=== PATIENT | female | born 1975 | race Caucasian/White ===

== ENCOUNTER 2018-06-04 11:32 | Emergency (ER) | payer BC ==
[2018-06-04 11:42] VITALS: BP 119/75; PULSE 103; RESP 16; TEMP 98.3
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
== END 2018-06-04 13:40 | disposition home or self-care (01) ==
LOC: EC 11:32
DX: Z04.1 Encounter for examination and observation following transport accident (principal); F17.200 Nicotine dependence, unspecified, uncomplicated
CPT/HCPCS: 99282

== ENCOUNTER 2018-09-01 08:06 | Emergency (ER) | payer MEDICAID ==
[2018-09-01 08:27] VITALS: RESP 18
--- NOTE | 2018-09-01 09:41 | ED ---
General Adult HPI - General Chief complaint: Skin/Abscess/Foreign Body Stated complaint: Urogenital, Cyst Source: patient Mode of arrival: ambulatory Limitations: no limitations - History of Present Illness Initial comments: 43-year-old female patient with a past medical history of attention deficit disorder and self diagnosed Bartholin's cyst. Patient states that the last year she has had a self diagnosed Bartholin's cyst on 2 occasions. On both these occasions the patient treated herself with sits baths, and the self- described cysts ruptured and resolved on its own. The patient's current complaint began approximately 2 days ago, when patient began to feel pain around her vulvar region. The patient states that she observe development of another cyst. She presented to the ED due to pain. Patient states that she subjectively felt feverish last night, and tach [id number] Motrin. Patient also took [id number] Motrin this morning. Patient states that she is not sexually active. Patient's last visit with a engineering technical analyst was approximately 3 years ago, when she had her last women's health examination. Patient states that she is due for another examination this year. Patient denies other complaints. Systemic: Pt denies fatigue, myalgia, rash. Pt denies weakness, night sweats, weight loss. Neuro: Pt denies headache, visual disturbances, syncope or pre-syncope. HEENT: Pt denies ocular discharge or irritation, otalgia, rhinorrhea, pharyngitis or notable lymphadenopathy. Cardiopulmonary: Pt denies chest pain, SOB, heart palpitations, dyspnea on exertion. Abdominal/GI: Pt denies abdominal pain, n/v/d. : Pt denies burning w/ urination, frequency/urgency. Denies new onset urinary or bowel incontinence. MSK: Pt denies myalgia, loss of strength or function in extremities. - Related Data Home Medications Medication Instructions Recorded Confirmed Aspirin/Acetaminophen/Caffeine 1 tab PO DAILY PRN 09/01/18 09/01/18 [Excedrin Migraine Caplet] Dextroamphetamine/Amphetamine 30 mg PO BID 09/01/18 09/01/18 [Adderall] Ibuprofen [Motrin Ib] 600 mg PO Q6H PRN 09/01/18 09/01/18 Previous Rx's Medication Instructions Recorded Hydrocodone/Acetaminophen [York 1 each PO Q6HR PRN #12 tab 09/01/18 5-325] Sulfamethox-Tmp 800-160Mg [Bactrim 2 tab PO Q12HR #40 tab 09/01/18 DS 800-160 mg] Allergies Allergy/AdvReac Type Severity Reaction Status Date / Time No Known Allergies Allergy Verified 09/01/18 10:28 Review of Systems ROS Statement: Those systems with pertinent positive or pertinent negative responses have been documented in the HPI. ROS Other: All systems not noted in ROS Statement are negative. Past Medical History Additional Past Medical History / Comment(s): migraines barthilon cysts History of Any Multi-Drug Resistant Organisms: None Reported Additional Past Surgical History / Comment(s): wide excision of Brown recluse bite on R upper thigh Past Psychological History: No Psychological Hx Reported Smoking Status: Current every day smoker Past Alcohol Use History: None Reported Past Drug Use History: None Reported General Exam - General Exam Comments Initial Comments: Constitutional: NAD, AOX3, Pt has pleasant affect. HEENT: NC/AT, trachea midline, neck supple, no lymphadenopathy. Posterior pharynx non erythematous, without exudates. External ears appear normal, without discharge. Mucous membranes moist. Eyes PERRLA, EOM intact. There is no scleral icterus. No pallor noted. Cardiopulmonary: RRR, no murmurs, rubs or gallops, no JVD noted. Lungs CTAB in anterior and posterior marmolejo. No peripheral edema. Abdominal exam: Abdomen soft and non-distended. Abdomen non-tender to palpation in all 4 quadrants. Bowel sounds active in LLQ. No hepatosplenomegaly. Neuro: CN II-XII grossly intact. Policy Services Representative: External gynecological exam conducted, chaperoned by Deborah SINGER. A tender area of erythema noted on R labia appproximately 2x.5 cm, non fluctuant. No other abnormalities noted. Limitations: no limitations Course Vital Signs 09/01/18 08:23 Temperature 99.0 F Pulse Rate 109 H Respiratory 18 Rate Blood Pressure 104/65 O2 Sat by Pulse 96 Oximetry Medical Decision Making - Medical Decision Making 43-year-old female patient presented to ED with acute vaginal pain. Vital signs stable, HR 92 when examined. Patient has history of suspected Bartholin cyst. Physical exam revealed a mild labial abscess, nonfluctuant located at approximately 7 oclock. Further investigations revealed a leukocytosis of 13.1 and a urinary tract infection. Lab will call pt if culture from urine grows a bacteria not covered by abx or if gonorrhea/chlamydia is positive. Patient's pain is well controlled with Toradol and 1 dose po norco. Pt will call mother to oil transport driver her home. Patient to be discharged with by mouth antibiotic and analgesia. Patient to follow up with primary care physician as well as engineering technical analyst in 1-2 days. Patient to return to ED if signs of systemic infection (including fever/chills, nausea vomiting diarrhea, diaphoresis, or any other new complaints. Disposition Clinical Impression: UTI (urinary tract infection), Labial abscess Disposition: HOME SELF-CARE Condition: Good Instructions: Abscess (ED), Urinary Tract Infection in Women (ED) Additional Instructions: Patient to adhere to previously discussed treatment plan and will take medication(s) as directed. Patient to follow up with PCP in 1-2 days. Patient to return to ED if symptoms do not improve. Prescriptions: Hydrocodone/Acetaminophen [York 5-325] 1 each PO Q6HR PRN #12 tab PRN Reason: Pain Sulfamethox-Tmp 800-160Mg [Bactrim DS 800-160 mg] 2 tab PO Q12HR #40 tab Is patient prescribed a controlled substance at d/c from ED?: Yes When asked, does pt state using other controlled substances?: No If prescribed controlled substance>3 days was MAPS reviewed?: Prescribed <3 Days If opioid is for acute pain is fill amount 7 days or less?: Yes If Rx opioid, was Start Talking consent form obtained?: Yes Referrals: Geo Hoyos MD [Primary Care Provider] - 1-2 days Nirmala Patino DO [Doctor of Osteopathic Medicine] - 1-2 days Time of Disposition: 10:55
[2018-09-01] MEDS ORDERED: KETOROLAC 60 MG/2 ML VIAL IM STA (09:45)
[2018-09-01 10:08] LABS: Basophils # (A) 0.1 k/uL (0-0.2); Basophils % (A) 1 %; Eosinophils # (A) 0.3 k/uL (0-0.7); Eosinophils % (A) 2 %; HGB 15.1 gm/dL (11.4-16.0); Lymphocytes # (A) 1.1 k/uL (1.0-4.8); Lymphocytes % (A) 8 %; MCHC 34.4 g/dL (31.0-37.0); MCV 81.5 fL (80.0-100.0); Mean Platelet Volume 6.9; Monocytes # (A) 0.5 k/uL (0-1.0); Monocytes % (A) 4 %; Neutrophils % (A) 84 %; Platelet Count 168 k/uL (150-450); RDW 14.4 % (11.5-15.5); WBC 13.1 k/uL (3.8-10.6)
[2018-09-01 10:19] LABS: Amorphous Sediment,Urine Occasional /hpf; Appearance,Urine Cloudy (Clear); Bacteria,Urine Rare /hpf; Bilirubin,Urine Negative (Negative); Blood,Urine Moderate (Negative); Color,Urine Yellow; Glucose,Urine (UA) Negative (Negative); Ketones,Urine Negative (Negative); Leukocyte Esterase,Urine Large (Negative); Mucus,Urine Occasional /hpf; Nitrite,Urine Negative (Negative); Protein,Urine Trace (Negative); RBC,Urine 13 /hpf (0-5); Specific Gravity,Urine 1.019 (1.001-1.035); Squamous Epithelial Cell,Urine 4 /hpf (0-4); Urobilinogen,Urine <2.0 mg/dL (<2.0)
[2018-09-01] MEDS ORDERED: HYDROcodone/APAP 5-325MG 1 EACH TAB PO STA (10:45)
[2018-09-01 11:05] VITALS: BP 110/70; PULSE 90; TEMP 98.7
[2018-09-02 13:54] LABS: C. trachomatis,PCR Negative (Neg,Equiv); Chlamydia trachomatis Source Vagina; N. gonorrhoeae,PCR Negative (Neg,Equiv); Neisseria Source Vagina
== END 2018-09-01 11:04 | disposition home or self-care (01) ==
LOC: EC 08:06
DX: N76.4 Abscess of vulva (principal); N39.0 Urinary tract infection, site not specified; F17.200 Nicotine dependence, unspecified, uncomplicated; Z98.890 Other specified postprocedural states; Z79.899 Other long term (current) drug therapy
CPT/HCPCS: 36415; 85025; 81001; 81025; 87491; 87591; 87086; 99283; 96372; J1885

== ENCOUNTER 2018-09-03 12:21 | Inpatient (IN) | payer MEDICAID ==
[2018-09-03] MEDS ORDERED: PIPERACILLIN-TAZOBACTAM 3.375 GM in SODIUM CHLORIDE 0.9% 100 ML IVPB STA (13:31)
[2018-09-03] MEDS ORDERED: ACETAMINOPHEN TAB 500 MG TAB PO STA (13:31)
[2018-09-03] MEDS ORDERED: VANCOMYCIN IV PER PHARMACY 1 EACH MISC MISCELLANE PRN (13:31)
[2018-09-03] MEDS ORDERED: MORPHINE SULFATE 4 MG/ML SYRINGE IVP STA (13:39)
--- NOTE | 2018-09-03 13:40 | ED ---
Skin/Abscess/FB HPI <Luis Louis - Last Filed: 09/03/18 17:05> - General Source: patient, RN notes reviewed, old records reviewed Mode of arrival: ambulatory Limitations: no limitations <Kelly Garcia - Last Filed: 09/03/18 17:18> - General Chief complaint: Skin/Abscess/Foreign Body Stated complaint: Abscess Time Seen by Provider: 09/03/18 12:40 - History of Present Illness Initial comments: Patient is a 43-year-old female who presents emergency department today she complained of increasing redness and swelling over her right labia majora extending into the mons pubis. Patient reports she's had high fevers of 102. She was discharged 2 days ago on Bactrim DS. She states at that time the area was not very fluctuant. At this time the area has a significant abscess in she reports some foul odor spontaneous drainage from the area. 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 She reports that she does occasionally get abscesses but typically will drink a month her own. Patient states that she does not have an INFORMATICS MANAGER at this time. (Kelly Garcia) - Related Data Home Medications Medication Instructions Recorded Confirmed Aspirin/Acetaminophen/Caffeine 1 tab PO DAILY PRN 09/01/18 09/03/18 [Excedrin Migraine Caplet] Dextroamphetamine/Amphetamine 30 mg PO BID 09/01/18 09/03/18 [Adderall] Ibuprofen [Motrin Ib] 600 mg PO Q6H PRN 09/01/18 09/03/18 Previous Rx's Medication Instructions Recorded Hydrocodone/Acetaminophen [[place] 1 each PO Q6HR PRN #12 tab 09/01/18 5-325] Sulfamethox-Tmp 800-160Mg [Bactrim 2 tab PO Q12HR #40 tab 09/01/18 DS 800-160 mg] Allergies Allergy/AdvReac Type Severity Reaction Status Date / Time No Known Allergies Allergy Verified 09/03/18 16:55 Review of Systems ROS Other: All systems not noted in ROS Statement are negative. <Luis Louis - Last Filed: 09/03/18 17:05> ROS Other: All systems not noted in ROS Statement are negative. <Kelly Garcia - Last Filed: 09/03/18 17:18> ROS Statement: Those systems with pertinent positive or pertinent negative responses have been documented in the HPI. Past Medical History Additional Past Medical History / Comment(s): migraines barthilon cysts History of Any Multi-Drug Resistant Organisms: None Reported Additional Past Surgical History / Comment(s): wide excision of Brown recluse bite on R upper thigh Past Psychological History: No Psychological Hx Reported Smoking Status: Current every day smoker Past Alcohol Use History: None Reported Past Drug Use History: Marijuana <Kelly Garcia - Last Filed: 09/03/18 17:18> General Exam <Luis Louis - Last Filed: 09/03/18 17:05> Limitations: no limitations General appearance: alert, in no apparent distress Head exam: Present: atraumatic, normocephalic, normal inspection Eye exam: Present: normal appearance, PERRL, EOMI. Absent: scleral icterus, conjunctival injection, periorbital swelling ENT exam: Present: normal exam, mucous membranes moist Neck exam: Present: normal inspection. Absent: tenderness, meningismus, lymphadenopathy Respiratory exam: Present: normal lung sounds bilaterally Cardiovascular Exam: Present: regular rate, normal rhythm, normal heart sounds. Absent: systolic murmur, diastolic murmur, rubs, gallop, clicks GI/Abdominal exam: Present: soft, normal bowel sounds. Absent: distended, tenderness, guarding, rebound, rigid External exam: Present: erythema (Patient has extensive erythema from the right labia minora to the mons pubis into the abdomen. Area of necrotic looking tissue over the labia minora with a abscess and drainage site.). Absent: normal external exam Speculum exam: Absent: normal speculum exam Extremities exam: Present: normal inspection, full ROM, normal capillary refill. Absent: tenderness, pedal edema, joint swelling, calf tenderness Back exam: Present: normal inspection <Kelly Garcia - Last Filed: 09/03/18 17:18> - General Exam Comments Initial Comments: 43-year-old female. Alert and oriented. Patient appears in moderate discussed discomfort. (Kelly Garcia) Course <Luis Louis - Last Filed: 09/03/18 17:05> <Kelly Garcia - Last Filed: 09/03/18 17:18> Vital Signs 09/03/18 09/03/18 09/03/18 12:24 14:06 15:00 Temperature 98.4 F Pulse Rate 121 H 100 Respiratory 20 16 Rate Blood Pressure 112/76 120/78 120/78 O2 Sat by Pulse 97 96 Oximetry 09/03/18 09/03/18 09/03/18 15:14 15:30 16:00 Temperature Pulse Rate 94 90 90 Respiratory 16 16 16 Rate Blood Pressure 129/79 129/79 118/78 O2 Sat by Pulse 94 L 96 96 Oximetry 09/03/18 16:30 Temperature Pulse Rate 84 Respiratory 16 Rate Blood Pressure 118/69 O2 Sat by Pulse Oximetry - Reevaluation(s) Reevaluation #1: 09/03/18 17:04 PA supervision: I proceeded [id number] evaluation the patient she does have pain erythema to the right labia minora with extension up into the mons pubis. Patient does have evidence of an eschar formation with some drainage. She did have a temperature 102.4 this morning. She had been on Bactrim and appears be failing outpatient treatment. She also did admit that she try to drain it herself. Attempt at drainage illnesses some pus and gas. CAT scan does show evidence of approximately 3.7 x 1.3 x 3.2. Repair density on the medial aspect the labia some associated fluid there is some extension of air more centrally toward the level of the urethra linear in appearance. Please see the complete report. I did discuss the findings with the patient and with Dr. Waggoner. Patient be admitted place an IV antibiotics. Patient will also be admitted for pain control. (Luis Louis) Medical Decision Making - Lab Data Result diagrams: 09/03/18 13:25 09/03/18 13:25 <Luis Louis - Last Filed: 09/03/18 17:05> - Lab Data Result diagrams: 09/03/18 13:25 09/03/18 13:25 - Radiology Data Radiology results: report reviewed <Kelly Garcia - Last Filed: 09/03/18 17:18> - Medical Decision Making 43-year-old female presents emergency from [facility] she plate of an abscess over the labia minora. Pain progressively worse for the past 2 days. She was started on Bactrim on . At this time Patient has significant swelling and cellulitis changes over the labia Are extending to the mons pubis. We did complete a CT abdomen and pelvis which does show some have cellulitis and abscess with air or streaking noted. Patient white blood cell count is elevated to 15,000 this time. Lactic acid was normal. We did start the Patient on Zosyn and vancomycin. She did tolerate slight incision and drainage and some fluid was extracted from the incision site. Patient's case discussed with Dr. Louis who discussed the case with Dr. Waggoner, whom may possibly proceed with surgical I and D. (Kelly Garcia) - Lab Data Lab Results 09/03/18 09/03/18 09/03/18 Range/Units 13:25 13:25 13:25 WBC 15.4 H (3.8-10.6) k/uL RBC 5.58 H (3.80-5.40) m/uL Hgb 14.9 (11.4-16.0) gm/dL Hct 46.0 (34.0-46.0) % MCV 82.5 (80.0-100.0) fL MCH 26.7 (25.0-35.0) pg MCHC 32.3 (31.0-37.0) g/dL RDW 14.5 (11.5-15.5) % Plt Count 208 (150-450) k/uL Neutrophils % 76 % Lymphocytes % 12 % Monocytes % 4 % Eosinophils % 4 % Basophils % 1 % Neutrophils # 11.7 H (1.3-7.7) k/uL Lymphocytes # 1.9 (1.0-4.8) k/uL Monocytes # 0.7 (0-1.0) k/uL Eosinophils # 0.7 (0-0.7) k/uL Basophils # 0.1 (0-0.2) k/uL PT (9.0-12.0) sec INR (<1.2) APTT (22.0-30.0) sec Sodium 138 (137-145) mmol/L Potassium 4.0 (3.5-5.1) mmol/L Chloride 104 (98-107) mmol/L Carbon Dioxide 22 (22-30) mmol/L Anion Gap 12 mmol/L BUN 10 (7-17) mg/dL Creatinine 0.90 (0.52-1.04) mg/dL Est GFR (CKD-EPI)AfAm 90 (>60 ml/min/1.73 sqM) Est GFR (CKD-EPI)NonAf 78 (>60 ml/min/1.73 sqM) Glucose 87 (74-99) mg/dL Plasma Lactic Acid [place] 1.9 (0.7-2.0) mmol/L Calcium 9.0 (8.4-10.2) mg/dL Total Bilirubin 0.5 (0.2-1.3) mg/dL AST 28 (14-36) U/L ALT 30 (9-52) U/L Alkaline Phosphatase 112 (38-126) U/L Total Protein 7.6 (6.3-8.2) g/dL Albumin 4.0 (3.5-5.0) g/dL 09/03/18 Range/Units 13:25 WBC (3.8-10.6) k/uL RBC (3.80-5.40) m/uL Hgb (11.4-16.0) gm/dL Hct (34.0-46.0) % MCV (80.0-100.0) fL MCH (25.0-35.0) pg MCHC (31.0-37.0) g/dL RDW (11.5-15.5) % Plt Count (150-450) k/uL Neutrophils % % Lymphocytes % % Monocytes % % Eosinophils % % Basophils % % Neutrophils # (1.3-7.7) k/uL Lymphocytes # (1.0-4.8) k/uL Monocytes # (0-1.0) k/uL Eosinophils # (0-0.7) k/uL Basophils # (0-0.2) k/uL PT 9.7 (9.0-12.0) sec INR 1.0 (<1.2) APTT 24.9 (22.0-30.0) sec Sodium (137-145) mmol/L Potassium (3.5-5.1) mmol/L Chloride (98-107) mmol/L Carbon Dioxide (22-30) mmol/L Anion Gap mmol/L BUN (7-17) mg/dL Creatinine (0.52-1.04) mg/dL Est GFR (CKD-EPI)AfAm (>60 ml/min/1.73 sqM) Est GFR (CKD-EPI)NonAf (>60 ml/min/1.73 sqM) Glucose (74-99) mg/dL Plasma Lactic Acid [place] (0.7-2.0) mmol/L Calcium (8.4-10.2) mg/dL Total Bilirubin (0.2-1.3) mg/dL AST (14-36) U/L ALT (9-52) U/L Alkaline Phosphatase (38-126) U/L Total Protein (6.3-8.2) g/dL Albumin (3.5-5.0) g/dL 09/03/18 16:44 EKG shows normal sinus rhythm normal EKG. Ventricular rate 96 bpm. Is 170 ms. QRS duration 90 ms. QT QTc 74/472 ms. (Kelly Garcia) - Radiology Data Correlate for cellulitis and abscess. There is a density along the medial aspect of the labia measuring 3.7 x 1.3 x 3.2 cm some associated fluid and extension of air more centrally towards the level of the urethra which is linear in appearance. (Kelly Garcia) Disposition <Luis Louis - Last Filed: 09/03/18 17:05> Is patient prescribed a controlled substance at d/c from ED?: No Time of Disposition: 17:18 <Kelly Garcia - Last Filed: 09/03/18 17:18> Clinical Impression: Labial abscess, Cellulitis of vulva of multiple sites, Failure of outpatient treatment Disposition: ADMITTED IP TO THIS HOSP Condition: Stable Referrals: Geo Hoyos MD [Primary Care Provider] - 1-2 days
[2018-09-03] MEDS ORDERED: VANCOMYCIN 2,000 MG in SODIUM CHLORIDE 0.9% 500 ML 500 ML IVPB ONE (14:00)
[2018-09-03] MEDS: SODIUM CHLORIDE 0.9% 500 ML 500 ML IV SCH ×4 (14:05→16:46)
[2018-09-03 14:15] LABS: Basophils # (A) 0.1 k/uL (0-0.2); Basophils % (A) 1 %; Eosinophils # (A) 0.7 k/uL (0-0.7); Eosinophils % (A) 4 %; HGB 14.9 gm/dL (11.4-16.0); Lymphocytes # (A) 1.9 k/uL (1.0-4.8); Lymphocytes % (A) 12 %; MCH 26.7 pg (25.0-35.0); MCHC 32.3 g/dL (31.0-37.0); MCV 82.5 fL (80.0-100.0); Mean Platelet Volume 7.1; Monocytes # (A) 0.7 k/uL (0-1.0); Monocytes % (A) 4 %; Neutrophils # (A) 11.7 k/uL (1.3-7.7); Neutrophils % (A) 76 %; Platelet Count 208 k/uL (150-450); RBC 5.58 m/uL (3.80-5.40); RDW 14.5 % (11.5-15.5); WBC 15.4 k/uL (3.8-10.6)
[2018-09-03 14:23] LABS: Partial Thromboplastin Time 24.9 sec (22.0-30.0); Prothrombin Time 9.7 sec (9.0-12.0)
[2018-09-03 14:35] LABS: Total Bilirubin 0.5 mg/dL (0.2-1.3); Total Protein 7.6 g/dL (6.3-8.2)
[2018-09-03] MEDS ORDERED: KETOROLAC 30 MG/ML 1 ML VIAL IVP STA (15:19)
[2018-09-03] MEDS ORDERED: HYDROmorphone 1 MG/ML 1 ML SYRINGE IVP STA (15:19)
--- NOTE | 2018-09-03 15:27 | CT ---
EXAMINATION TYPE: CT pelvis w con DATE OF EXAM: 09/03/2018 HISTORY: Labial abscess. CT DLP: 1662.8 mGycm Automated exposure control for dose reduction was used. TECHNIQUE: Helical acquisition of images from the lung bases through the pelvis have been completed. CONTRAST: Performed without Oral Contrast and with IV Contrast, patient injected with 100 mL of Isovue 300. FINDINGS: No pneumoperitoneum or retroperitoneal adenopathy evident, no ascites. REPRODUCTIVE ORGANS: There is abnormal increased attenuation within the subcutaneous fat along the la wil greater on the right. There is air density present along the medial aspect of the labia measuring approximately 3.7 x 1.3 x 3.2 cm with some associated fluid and there is some extension of air more centrally towards the level of the urethra which is linear in appearance. Subcutaneous fat shows incr eased attenuation towards the mons pubis. The uterus and adnexal structures are unremarkable. BOWEL: No significant abnormality is seen. PELVIC ADENOPATHY: Borderline inguinal nodes are likely reactive. URINARY BLADDER: No significant abnormality is seen. OSSEOUS STRUCTURES: Sacroiliac sclerosis is present, correlate for possible stress changes. IMPRESSION: CORRELATE FOR ABSCESS, CELLULITIS.
[2018-09-03 17:14] LABS: Appearance,Urine Clear (Clear); Bacteria,Urine Rare /hpf; Bilirubin,Urine Negative (Negative); Blood,Urine Moderate (Negative); Color,Urine Yellow; Glucose,Urine (UA) Negative (Negative); Ketones,Urine Negative (Negative); Leukocyte Esterase,Urine Moderate (Negative); Nitrite,Urine Negative (Negative); PH, Urine 6.5 (5.0-8.0); Protein,Urine Trace (Negative); RBC,Urine 13 /hpf (0-5); Squamous Epithelial Cell,Urine 2 /hpf (0-4); Urobilinogen,Urine <2.0 mg/dL (<2.0); WBC,Urine 29 /hpf (0-5)
[2018-09-03] MEDS ORDERED: NALOXONE 0.4 MG/ML 1 ML VIAL IV PRN (17:19)
[2018-09-03] MEDS ORDERED: IBUPROFEN 400 MG TAB PO PRN (17:19)
[2018-09-03 17:21] LABS: Specific Gravity,Urine >1.050 (1.001-1.035)
[2018-09-03] MEDS: SODIUM CHLORIDE 0.9% 1,000 ML IV SCH (20:50)
[2018-09-03] MEDS: HYDROmorphone 1 MG/ML 1 ML SYRINGE IVP PRN (21:43)
[2018-09-03] MEDS: PIPERACILLIN-TAZOBACTAM 3.375 GM in SODIUM CHLORIDE 0.9% 100 ML IVPB SCH (23:28)
[2018-09-04] MEDS: HYDROmorphone 1 MG/ML 1 ML SYRINGE IVP PRN ×5 (01:07→20:31)
[2018-09-04] MEDS: SODIUM CHLORIDE 0.9% 1,000 ML IV SCH ×3 (01:08→20:37)
[2018-09-04] MEDS: VANCOMYCIN 1,750 MG in SODIUM CHLORIDE 0.9% 500 ML 500 ML IVPB SCH ×2 (05:28→18:19)
[2018-09-04] MEDS: PANTOPRAZOLE 40 MG/10 ML VIAL IV SCH (08:18)
[2018-09-04] MEDS: PIPERACILLIN-TAZOBACTAM 3.375 GM in SODIUM CHLORIDE 0.9% 100 ML IVPB SCH ×3 (09:54→23:22)
[2018-09-04] MEDS: KETOROLAC 30 MG/ML 1 ML VIAL IVP PRN (10:02)
--- NOTE | 2018-09-04 10:09 | P.HPOB ---
History of Present Illness H&P Date: 09/04/18 Chief Complaint: Right vulvar abscess This is a 43-year-old white female 3 para 10-1 LMP 08/26/2018 who presents with an increasingly painful right vulvar abscess. She was seen in the emergency room here 3 days ago for same, placed on Bactrim DS 2 pills twice a day and given a prescription for [place]. Since that time, the area has continued to increase in size and pain. Yesterday she really presented to the emergency room for reevaluation. The lesion has now extended into the right thigh, the labia majora, and the mons. Computed tomography scan reveals multi loculated area in the right labia with gas bubbles. She did have a fever at home of 102.4 on 09/02/2018 at 0400 hrs., but has been afebrile since that time. She denies any other symptomatology. No nausea vomiting. Review of systems is otherwise negative. Past medical history is significant for obesity and ADHD, she also has a history of migraine headaches. Home medications Adderall 30 mg daily. Past surgical history wide excision of a brown recluse spider bite of the right leg many years ago. Obstetric history normal spontaneous vaginal delivery of 7 lbs. 9 oz. male in 2008. She has had 2 miscarriages, neither requiring D&C. Past [employer] history menarche began at the age of 11, menses every 28-30 days lasting 5 days in duration. She denies history of GC chlamydia HSV or HPV infections. She is not currently sexually active and using nothing for contraception. Social history patient admits to social alcohol, she denies any illicit drug use. Tobacco smoker one pack per day for 20 years. She is single. Family history mother has a history of thyroid cancer, she has 2 sisters and 1 brother all of whom are healthy, she has no contact with her father. She denies family history of cancers of the cervix, uterus, ovaries, colon or breast. On exam this is a pleasant white female, 5 foot 7 inches, 210 pounds, temperature 97.1, respirations 16, pulse 74, blood pressure 125/64. HEENT exam reveals no thyromegaly, good range of motion of the neck, no cervical lymphadenopathy. Patient has good dentition. Breasts are large and pendulous, without skin dimpling, nipple discharge, axillary adenopathy, or discernible lesions or masses. Abdomen is soft and nontender, no tenderness organomegaly, active bowel sounds, abdomen is obese. No CVA tenderness. Extremities reveal no edema, there are good peripheral pulses. Chest is clear in all m[place] anteriorly and posteriorly. Cardiac exam reveals regular rate and rhythm with no murmur click or rub. On pelvic examination the right labia minora is enlarged and erythematous. There is a membranous covering over the abscess area that measures 1.5 cm. Q- tip applicator is used to remove this membranous overlying area, and the wound is probed. Malodorous yellow-green purulent material is drained. The erythema extends into the right labia majora which is 40, consistent with cellulitis. There is a small amount of erythema into the right thigh as well as into the inferior most portion of the mons. The left perineal area appears normal. WBC' s 15.4. Impression: Right labial abscess, currently draining spontaneously. Patient on vancomycin 2000 mg every 12 hours and Zosyn 3.375 mg every 8 hours, started last night in the ER. Aerobic and anaerobic cultures are pending. Plan we will continue vancomycin and Zosyn. I will reevaluate the area tomorrow. If clinical improvement is noted, we will continue same. If the lesion has not improved, we will proceed with incision and drainage in the operating room, likely on Wednesday. This is been reviewed with the patient who understands and agrees. Continue pain management. Review of Systems Constitutional: Reports as per HPI Past Medical History Additional Past Medical History / Comment(s): migraines barthilon cysts History of Any Multi-Drug Resistant Organisms: None Reported Additional Past Surgical History / Comment(s): wide excision of Brown recluse bite on R upper thigh Past Psychological History: ADD/ADHD Smoking Status: Current every day smoker Past Alcohol Use History: None Reported Past Drug Use History: Marijuana - Past Family History Mother Family Medical History: Thyroid Disorder Medications and Allergies Home Medications Medication Instructions Recorded Confirmed Type Aspirin/Acetaminophen/Caffeine 1 tab PO DAILY PRN 09/01/18 09/03/18 History [Excedrin Migraine Caplet] Dextroamphetamine/Amphetamine 30 mg PO BID 09/01/18 09/03/18 History [Adderall] Hydrocodone/Acetaminophen [[place] 1 each PO Q6HR PRN #12 tab 09/01/18 09/03/18 Rx 5-325] Ibuprofen [Motrin Ib] 600 mg PO Q6H PRN 09/01/18 09/03/18 History Sulfamethox-Tmp 800-160Mg [Bactrim 2 tab PO Q12HR #40 tab 09/01/18 09/03/18 Rx DS 800-160 mg] Allergies Allergy/AdvReac Type Severity Reaction Status Date / Time No Known Allergies Allergy Verified 09/03/18 16:55 Exam Vital Signs Temp Pulse Pulse Resp BP BP Pulse Ox 09/04/18 07:00 96.8 F L 68 16 98/53 95 09/03/18 22:20 97.8 F 74 20 106/54 96 09/03/18 18:00 74 16 110/60 96 09/03/18 17:30 78 18 122/72 96 09/03/18 17:00 77 16 118/69 97 09/03/18 16:30 84 16 118/69 09/03/18 16:00 90 16 118/78 96 09/03/18 15:30 90 16 129/79 96 09/03/18 15:14 94 16 129/79 94 L 09/03/18 15:00 120/78 09/03/18 14:06 100 16 120/78 96 09/03/18 12:24 98.4 F 121 H 20 112/76 97 Intake and Output 09/03/18 09/04/18 09/04/18 23:59 06:59 14:59 Intake Total 200 Balance 200 Intake: Oral 200 Other: # Voids See dictation under HPI please Results Result Diagrams: 09/03/18 13:25 09/03/18 13:25 Abnormal Lab Results - Last 24 Hours (Table) 09/03/18 09/03/18 Range/Units 13:25 16:40 WBC 15.4 H (3.8-10.6) k/uL RBC 5.58 H (3.80-5.40) m/uL Neutrophils # 11.7 H (1.3-7.7) k/uL Ur Specific [place] >1.050 H (1.001-1.035) Urine Protein Trace H (Negative) Urine Blood Moderate H (Negative) Ur Leukocyte Esterase Moderate H (Negative) Urine RBC 13 H (0-5) /hpf Urine WBC 29 H (0-5) /hpf Urine Bacteria Rare H (None) /hpf Microbiology - Last 24 Hours (Table) 09/03/18 15:40 Gram Stain - Preliminary Groin Wound Culture - Preliminary 09/03/18 13:25 Gram Stain - Preliminary Groin Wound Culture - Preliminary 09/03/18 17:05 Anaerobic Culture - Preliminary Drainage Assessment and Plan Assessment: Right labial abscess, failed outpatient therapy. Plan: Continue vancomycin and Zosyn. Continue pain management. Reevaluate the lesion tomorrow. If clinical improvement is noted, we will continue same. If the lesion has not improved, we will proceed with incision and drainage in the operating room. His been reviewed with the patient in detail and she understands and agrees. Time with Patient: Greater than 30
[2018-09-04] MEDS: ONDANSETRON 4 MG/2 ML VIAL IVP PRN ×2 (11:24→23:27)
[2018-09-04] MEDS: NICOTINE 21MG/24HR PATCH TRANSDERM SCH (12:34)
[2018-09-04] MEDS: ACETAMINOPHEN TAB 325 MG TAB PO PRN (23:27)
[2018-09-05] MEDS: HYDROmorphone 1 MG/ML 1 ML SYRINGE IVP PRN ×5 (03:00→21:05)
[2018-09-05] MEDS: VANCOMYCIN 1,750 MG in SODIUM CHLORIDE 0.9% 500 ML 500 ML IVPB SCH ×2 (05:20→16:40)
[2018-09-05] MEDS: KETOROLAC 30 MG/ML 1 ML VIAL IVP PRN (07:44)
[2018-09-05] MEDS: PIPERACILLIN-TAZOBACTAM 3.375 GM in SODIUM CHLORIDE 0.9% 100 ML IVPB SCH ×3 (07:46→22:25)
[2018-09-05] MEDS: SODIUM CHLORIDE 0.9% 1,000 ML IV SCH ×2 (07:47→20:05)
[2018-09-05] MEDS: NICOTINE 21MG/24HR PATCH TRANSDERM SCH (07:47)
[2018-09-05] MEDS: PANTOPRAZOLE 40 MG/10 ML VIAL IV SCH (07:47)
--- NOTE | 2018-09-05 08:02 | P.PN ---
Subjective Progress Note Date: 09/05/18 Principal diagnosis: Right vulvar abscess Patient slept well last night. Pain is improved. Lesion drained yesterday, minimal drainage this morning. Objective - Vital Signs Vital signs: Vital Signs Temp 97.3 F L 09/05/18 07:00 Pulse 84 09/05/18 07:00 Resp 18 09/05/18 07:00 BP 113/83 09/05/18 07:00 Pulse Ox 95 09/05/18 07:00 Intake & Output 09/04/18 09/05/18 09/05/18 18:59 06:59 18:59 Intake Total 200 780 Balance 200 780 Weight 95.254 kg Intake: Oral 200 780 Other: Voiding Method Toilet Toilet # Voids 2 - Constitutional General appearance: Present: average body habitus, cooperative - EENT Eyes: Present: PERRLA ENT: Present: hearing grossly normal - Neck Neck: Present: normal ROM Thyroid: bilateral: normal size - Respiratory Respiratory: bilateral: CTA - Cardiovascular Rhythm: regular - Gastrointestinal General gastrointestinal: Present: normal bowel sounds - Genitourinary Genitourinary Comment(s): Right vulvar abscess improved, erythema lessened, mons and inner thigh appear normal. Cellulitic changes persist, however improvement is noted. Central area appears clean and dry. - Integumentary Integumentary: Present: normal - Neurologic Neurologic: Present: CNII-XII intact - Musculoskeletal Musculoskeletal: Present: gait normal, strength equal bilaterally - Psychiatric Psychiatric: Present: A&O x's 3, appropriate affect, intact judgment & insight - Labs CBC & Chem 7: 09/03/18 13:25 09/03/18 13:25 Labs: Microbiology - Last 24 Hours (Table) 09/03/18 13:25 Blood Culture - Preliminary Blood No Growth after 24 hours 09/03/18 16:40 Urine Culture - Preliminary Urine,Voided 09/03/18 15:40 Gram Stain - Preliminary Groin Wound Culture - Preliminary Assessment and Plan Assessment: Right vulvar abscess, clinical improvement noted on IV antibiotics. Plan: Patient and I discussed the option of incision and drainage in the operating room. However, obvious clinical improvement is seen. We will check a white blood cell count this morning, and continue IV antibiotics. Reassessment tomorrow morning, transition to oral antibiotics within the next several days. Patient understands and agrees with our plan. Time with Patient: Less than 30
[2018-09-05 08:20] LABS: Basophils # (A) 0.1 k/uL (0-0.2); Basophils % (A) 1 %; Eosinophils # (A) 0.8 k/uL (0-0.7); Eosinophils % (A) 9 %; HCT 38.9 % (34.0-46.0); HGB 12.6 gm/dL (11.4-16.0); Lymphocytes # (A) 2.1 k/uL (1.0-4.8); Lymphocytes % (A) 24 %; MCH 26.9 pg (25.0-35.0); MCHC 32.4 g/dL (31.0-37.0); Mean Platelet Volume 7.2; Monocytes # (A) 0.2 k/uL (0-1.0); Monocytes % (A) 3 %; Neutrophils # (A) 5.2 k/uL (1.3-7.7); Neutrophils % (A) 60 %; Platelet Count 185 k/uL (150-450); RBC 4.68 m/uL (3.80-5.40); RDW 14.7 % (11.5-15.5); WBC 8.6 k/uL (3.8-10.6)
[2018-09-05] MEDS ORDERED: VANCOMYCIN TROUGH DUE 1 EACH MISC MISCELLANE ONE (16:00)
[2018-09-06] MEDS: HYDROmorphone 1 MG/ML 1 ML SYRINGE IVP PRN ×7 (00:52→21:00)
[2018-09-06] MEDS: KETOROLAC 30 MG/ML 1 ML VIAL IVP PRN ×3 (00:54→14:56)
[2018-09-06] MEDS: VANCOMYCIN 1,500 MG in SODIUM CHLORIDE 0.9% 250 ML IVPB SCH ×3 (00:55→18:02)
[2018-09-06] MEDS: SODIUM CHLORIDE 0.9% 1,000 ML IV SCH ×2 (05:38→14:58)
[2018-09-06] MEDS: PIPERACILLIN-TAZOBACTAM 3.375 GM in SODIUM CHLORIDE 0.9% 100 ML IVPB SCH ×3 (05:55→22:45)
[2018-09-06] MEDS: NICOTINE 21MG/24HR PATCH TRANSDERM SCH (07:54)
[2018-09-06] MEDS: PANTOPRAZOLE 40 MG TABLET PO SCH (07:54)
--- NOTE | 2018-09-06 08:27 | P.PN ---
Subjective Progress Note Date: 09/06/18 Vulvar area less tender, less inflamed. Minimal drainage. Objective - Vital Signs Vital signs: Vital Signs Temp 96.1 F L 09/06/18 06:01 Pulse 65 09/06/18 06:01 Resp 16 09/06/18 07:58 BP 122/68 09/06/18 06:01 Pulse Ox 96 09/06/18 06:01 Intake & Output 09/05/18 09/06/18 09/06/18 18:59 06:59 18:59 Intake Total 400 Balance 400 Intake: Oral 400 Other: # Voids 2 2 # Bowel Movements 0 - Constitutional General appearance: Present: average body habitus, cooperative - EENT Eyes: Present: PERRLA ENT: Present: hearing grossly normal - Neck Neck: Present: normal ROM Thyroid: bilateral: normal size - Respiratory Respiratory: bilateral: CTA - Cardiovascular Rhythm: regular - Gastrointestinal General gastrointestinal: Present: normal bowel sounds - Genitourinary Genitourinary Comment(s): Right vulvar abscess smaller, less tender, erythema and edema greatly improved. Wound gently probe was contacted applicator, no loculations, scant superficial drainage. No site erythema. Minimal mons erythema. - Integumentary Integumentary: Present: normal - Neurologic Neurologic: Present: CNII-XII intact - Musculoskeletal Musculoskeletal: Present: gait normal, strength equal bilaterally - Psychiatric Psychiatric: Present: A&O x's 3, appropriate affect, intact judgment & insight - Labs CBC & Chem 7: 09/05/18 08:02 09/03/18 13:25 Labs: Microbiology - Last 24 Hours (Table) 09/03/18 15:40 Gram Stain - Final Groin Wound Culture - Final 09/03/18 13:25 Blood Culture - Preliminary Blood No Growth after 48 hours 09/03/18 16:40 Urine Culture - Final Urine,Voided 09/03/18 13:25 Gram Stain - Final Groin Wound Culture - Final Assessment and Plan Assessment: Right vulvar abscess, clinical improvement again noted. Plan: Continue IV antibiotics through today. Likely discharge home tomorrow on oral antibiotics. Continue hot showers and soaking of the region twice daily. Final wound Culture results still pending. Blood cultures and urine cultures negative. Time with Patient: Less than 30
[2018-09-06] MEDS: ONDANSETRON 4 MG/2 ML VIAL IVP PRN (22:44)
[2018-09-07] MEDS: HYDROmorphone 1 MG/ML 1 ML SYRINGE IVP PRN ×3 (00:24→06:31)
[2018-09-07] MEDS: SODIUM CHLORIDE 0.9% 1,000 ML IV SCH ×3 (00:57→21:46)
[2018-09-07] MEDS: VANCOMYCIN 1,500 MG in SODIUM CHLORIDE 0.9% 250 ML IVPB SCH ×3 (02:50→17:47)
[2018-09-07] MEDS: ONDANSETRON 4 MG/2 ML VIAL IVP PRN ×2 (06:31→15:49)
[2018-09-07] MEDS: PIPERACILLIN-TAZOBACTAM 3.375 GM in SODIUM CHLORIDE 0.9% 100 ML IVPB SCH ×3 (06:39→23:33)
[2018-09-07] MEDS: PANTOPRAZOLE 40 MG TABLET PO SCH (07:40)
[2018-09-07] MEDS: NICOTINE 21MG/24HR PATCH TRANSDERM SCH (07:40)
--- NOTE | 2018-09-07 07:40 | P.PN ---
Subjective Progress Note Date: 09/07/18 Principal diagnosis: Hospital day #3 for enlarged vulvar abscess. Slept well, minimal drainage, still tenderness in the central part of the mons pubis. Objective - Vital Signs Vital signs: Vital Signs Temp 97.3 F L 09/07/18 06:16 Pulse 73 09/07/18 06:16 Resp 16 09/07/18 06:16 BP 123/68 09/07/18 06:16 Pulse Ox 96 09/07/18 06:16 Intake & Output 09/06/18 09/07/18 09/07/18 18:59 06:59 18:59 Intake Total 440 Balance 440 Intake: Oral 440 Other: # Voids 2 2 # Bowel Movements 0 - Constitutional General appearance: Present: average body habitus, cooperative, obese - EENT Eyes: Present: PERRLA ENT: Present: hearing grossly normal - Neck Neck: Present: normal ROM - Respiratory Respiratory: bilateral: CTA - Cardiovascular Rhythm: regular - Gastrointestinal General gastrointestinal: Present: normal bowel sounds - Genitourinary Genitourinary Comment(s): Small amount of tenderness in the central mons area. Overall fluctuance and edema as well as erythema are greatly improved. No inguinal adenopathy. - Integumentary Integumentary: Present: normal - Neurologic Neurologic: Present: CNII-XII intact - Musculoskeletal Musculoskeletal: Present: gait normal, strength equal bilaterally - Psychiatric Psychiatric: Present: A&O x's 3, appropriate affect, intact judgment & insight - Labs CBC & Chem 7: 09/05/18 08:02 09/03/18 13:25 Labs: Microbiology - Last 24 Hours (Table) 09/03/18 17:05 Anaerobic Culture - Preliminary Drainage Anaerobic Gm Positive Bacill 09/03/18 13:25 Blood Culture - Preliminary Blood No Growth after 72 hours Assessment and Plan Assessment: Hospital day #3, and IV antibiotics for vulvar abscess, failed outpatient treatment. Patient has remained afebrile, white count has normalized. There is still a minimal to moderate amount edema in the central mons pubis. Plan: Continue IV antibiotics for an additional 24 hours. Likely discharge home tomorrow on Augmentin 875 mg twice a day for an additional 2 weeks. Continue local wound care with sitz baths and showers. Transition today to oral analgesia.
[2018-09-07] MEDS: KETOROLAC 30 MG/ML 1 ML VIAL IVP PRN ×3 (07:45→21:41)
[2018-09-07] MEDS ORDERED: VANCOMYCIN TROUGH DUE 1 EACH MISC MISCELLANE ONE (09:00)
[2018-09-07 09:30] LABS: Anion Gap 6 mmol/L; Blood Urea Nitrogen 8 mg/dL (7-17); Calcium 8.5 mg/dL (8.4-10.2); Carbon Dioxide 24 mmol/L (22-30); Chloride 109 mmol/L (98-107); Glucose 107 mg/dL (74-99); Potassium 4.2 mmol/L (3.5-5.1); Sodium 139 mmol/L (137-145)
[2018-09-07] MEDS ORDERED: IBUPROFEN 800 MG TAB PO PRN (09:57)
[2018-09-07] MEDS: ACETAMINOPHEN TAB 325 MG TAB PO PRN (13:24)
[2018-09-07] MEDS ORDERED: BENZOCAINE/MENTHOL LOZENG 1 EACH LOZENGE MUCOUS MEM PRN (22:03)
[2018-09-08] MEDS: HYDROcodone/APAP 7.5-325MG 1 EACH TAB PO PRN ×2 (00:38→08:00)
[2018-09-08 00:54] VITALS: RESP 18
[2018-09-08] MEDS: VANCOMYCIN 1,500 MG in SODIUM CHLORIDE 0.9% 250 ML IVPB SCH (01:54)
[2018-09-08] MEDS: KETOROLAC 30 MG/ML 1 ML VIAL IVP PRN (05:52)
[2018-09-08] MEDS: ONDANSETRON 4 MG/2 ML VIAL IVP PRN (05:59)
[2018-09-08] MEDS: PIPERACILLIN-TAZOBACTAM 3.375 GM in SODIUM CHLORIDE 0.9% 100 ML IVPB SCH ×2 (06:44→06:45)
[2018-09-08 07:09] VITALS: BP 145/94; PULSE 79; TEMP 97.6
[2018-09-08] MEDS: SODIUM CHLORIDE 0.9% 1,000 ML IV SCH (07:57)
[2018-09-08] MEDS: PANTOPRAZOLE 40 MG TABLET PO SCH (07:59)
[2018-09-08] MEDS: NICOTINE 21MG/24HR PATCH TRANSDERM SCH (08:00)
--- NOTE | 2018-09-08 08:06 | P.DS ---
Providers Date of admission: 09/03/18 17:03 Expected date of discharge: 09/08/18 Attending physician: Carissa Waggoner Primary care physician: Geo Hoyos [facility] Course: This is a 43-year-old female who presented to the emergency room for evaluation of an enlarging painful right labial abscess. She was seen in the ER the day prior, and given her prescription for antibiotics. The wound however became larger and more tender, she re-presented. A right vulvar abscess was noted, cultures were done, and she was admitted for inpatient therapy. The WBCs on admission 15.4. At the bedside the wound was probed, cultures were performed. Consideration was made for point to the operating room, however the wound was draining spontaneously and opened proximal 1.5 cm. Patient was started on Zosyn and vancomycin intravenously. Please see admitting history and physical for details. Antibiotics were continued until this morning. This morning, the wound is greatly improved, erythema is reduced, edema is reduced, there is no obvious cellulitis. The thigh, the mons, and the labia all appear soft. The wound is still open, minimal drainage noted. Pain is greatly improved. White blood cell count decreased to 8.6. Patient has remained afebrile, vital signs are stable. Urine culture is negative, blood cultures are negative, wound culture reveals Gram-positive bacilli. Intravenous antibiotics at this time will be discontinued. I have given her prescription for Augmentin 875 mg to be taken twice daily for 2 weeks. She will continue soaking the area with warm sits baths, no intercourse. She may return to work tomorrow. She will use [id number] Advil or Aleve as needed for pain. I've asked her to call me with any fever, with any increasing redness size or tenderness of the area, or indeed with any difficulties or concerns. She will follow-up with me in the office for recheck in 7-10 days. Patient Condition at Discharge: Good Plan - Discharge Summary Discharge Rx Participant: No New Discharge Prescriptions: No Action Aspirin/Acetaminophen/Caffeine [Excedrin Migraine Caplet] 1 tab PO DAILY PRN PRN Reason: Migraine Headache Dextroamphetamine/Amphetamine [Adderall] 30 mg PO BID Ibuprofen [Motrin Ib] 600 mg PO Q6H PRN PRN Reason: Pain Sulfamethox-Tmp 800-160Mg [Bactrim DS 800-160 mg] 2 tab PO Q12HR #40 tab Hydrocodone/Acetaminophen [[place] 5-325] 1 each PO Q6HR PRN #12 tab PRN Reason: Pain Discharge Medication List Aspirin/Acetaminophen/Caffeine [Excedrin Migraine Caplet] 1 tab PO DAILY PRN 11/18 [History] Dextroamphetamine/Amphetamine [Adderall] 30 mg PO BID 09/01/18 [History] Hydrocodone/Acetaminophen [[place] 5-325] 1 each PO Q6HR PRN #12 tab 09/01/18 [Rx] Ibuprofen [Motrin Ib] 600 mg PO Q6H PRN 09/01/18 [History] Sulfamethox-Tmp 800-160Mg [Bactrim DS 800-160 mg] 2 tab PO Q12HR #40 tab [Rx] Follow up Appointment(s)/Referral(s): Geo Hoyos MD [Primary Care Provider] - 1-2 days Carissa Waggoner MD [STAFF PHYSICIAN] - 1 Week Patient Instructions/Handouts: How to Stop Smoking (DC), Abscess (GEN) Activity/Diet/Wound Care/Special Instructions: Low fat diet. Activity as tolerated.
== END 2018-09-08 08:47 | disposition home or self-care (01) | DRG 759 ==
LOC: EC 12:21 → 4MS4W 17:03
PROVIDERS: ADMIT Obstetrics & Gynecology; ATTEND Obstetrics & Gynecology
DX: N76.4 Abscess of vulva (principal); N76.2 Acute vulvitis; E66.9 Obesity, unspecified; G43.909 Migraine, unspecified, not intractable, without status migrainosus; F17.210 Nicotine dependence, cigarettes, uncomplicated; F90.9 Attention-deficit hyperactivity disorder, unspecified type; Z79.82 Long term (current) use of aspirin; Z79.899 Other long term (current) drug therapy; Z68.32 Body mass index [BMI] 32.0-32.9, adult
CPT/HCPCS: 36415; 72193; 80048; 80053; 80202; 81001; 83605; 85025; 85610; 85730; 87040; 87070; 87075; 87086; 87205; 93005; 96365; 96366; 96367; 96375; 99285